=== PATIENT | female | born 1965 | race African-American/Black ===

== ENCOUNTER 2017-11-27 20:42 | Emergency (ER) | payer SELFPAY ==
[~2017-11-27] VITALS: Ht 152.4 cm; Wt 47.0 kg
[2017-11-28] MEDS ORDERED: HYDROCODONE/ACETAMINOPHEN 10/325MG TABLET PO ONE (02:00)
[2017-11-28 03:05] VITALS: BP 114/77
== END 2017-11-28 03:15 | disposition home or self-care (01) ==
LOC: ER 20:42
DX: S42.212A Unspecified displaced fracture of surgical neck of left humerus, initial encounter for closed fracture (principal); Y09 Assault by unspecified means; Y92.9 Unspecified place or not applicable; I10 Essential (primary) hypertension; Z88.0 Allergy status to penicillin
CPT/HCPCS: 73030; 99284; A4565

== ENCOUNTER 2021-07-27 18:02 | Emergency (ER) | payer MEDICAID ==
[~2021-07-27] VITALS: Ht 152.4 cm; Wt 45.0 kg
[2021-07-27 18:07] VITALS: BP 121/93
[2021-07-27] MEDS ORDERED: OFLO5DRO4 LEFT EAR (18:48)
== END 2021-07-27 19:03 | disposition home or self-care (01) ==
LOC: ER 18:02
DX: H92.02 Otalgia, left ear (principal); H66.92 Otitis media, unspecified, left ear; I10 Essential (primary) hypertension; F12.10 Cannabis abuse, uncomplicated; Z98.890 Other specified postprocedural states; Z88.0 Allergy status to penicillin
CPT/HCPCS: 99281

== ENCOUNTER 2021-09-25 08:23 | Emergency (ER) | payer MEDICAID ==
[~2021-09-25] VITALS: Ht 152.4 cm; Wt 52.0 kg
[~2021-09-25 08:23] MED LIST: OFLO5DRO4 LEFT EAR
[2021-09-25 08:40] VITALS: BP 128/83
[2021-09-25] MEDS ORDERED: ONDA4TAB5 PO (09:06)
[2021-09-25] MEDS ORDERED: TOPUD PO (09:06)
[2021-09-25] MEDS ORDERED: ONDANSETRON HCL 4MG TABLET PO ONE (09:15)
[2021-09-25] MEDS ORDERED: ACETAMINOPHEN 325MG TABLET PO ONE (09:15)
== END 2021-09-25 09:32 | disposition home or self-care (01) ==
LOC: ER 08:23
DX: M79.661 Pain in right lower leg (principal); R11.0 Nausea; I10 Essential (primary) hypertension; Z88.0 Allergy status to penicillin; Z90.710 Acquired absence of both cervix and uterus; Z98.890 Other specified postprocedural states
CPT/HCPCS: 99283; Q0162